=== PATIENT | male | born 1960 | race Asian ===

== ENCOUNTER 2018-05-03 15:02 | Outpatient (CLI) | payer OTHER ==
[~2018-05-03 15:02] MED LIST: ACET5TAB36 PO; CYCL10TA35 PO; GLIP5TAB65 PO; GLUCOPHAGE1000 MG PO; RANI150T78 PO; [UNRECOGNIZED DRUG - CODE] PO
[2018-05-03 15:46] LABS: PLATELET COUNT 195 K/uL (142-355)
[2018-05-03 16:11] LABS: POTASSIUM 3.9 mmol/L (3.6-5.2)
== END 2018-05-03 21:25 | disposition home or self-care (01) ==
LOC: RAD 15:02
PROVIDERS: Internal Medicine
DX: M19.90 Unspecified osteoarthritis, unspecified site (principal); E11.9 Type 2 diabetes mellitus without complications; Z12.5 Encounter for screening for malignant neoplasm of prostate; R97.20 Elevated prostate specific antigen [PSA]
CPT/HCPCS: 36415; 80053; 80061; 81000; 82043; 82570; 83036; 84153; 85027; 86039

== ENCOUNTER 2018-05-10 15:32 | Outpatient (CLI) | payer OTHER | END 2018-05-10 22:10 | disposition home or self-care (01) | LOC: LABW 15:32 | DX: R80.9 Proteinuria, unspecified (principal) | CPT/HCPCS: 36415; 84165; 84166 ==

== ENCOUNTER 2019-12-29 08:41 | Outpatient (CLI) | payer OTHER | END 2019-12-29 23:01 | disposition home or self-care (01) | LOC: US 08:41 | DX: R74.8 Abnormal levels of other serum enzymes (principal) ==

== ENCOUNTER 2020-10-22 16:01 | Outpatient (CLI) | payer OTHER | END 2020-10-22 21:31 | disposition home or self-care (01) | LOC: RAD 16:01 | PROVIDERS: ATTEND Internal Medicine | DX: M54.6 Pain in thoracic spine (principal); I10 Essential (primary) hypertension ==

== ENCOUNTER 2021-10-21 10:51 | Outpatient (CLI) | payer OTHER | END 2021-10-21 18:54 | disposition home or self-care (01) | LOC: US 10:51 | PROVIDERS: ATTEND Internal Medicine | DX: I63.542 Cerebral infarction due to unspecified occlusion or stenosis of left cerebellar artery (principal) ==

== ENCOUNTER 2021-10-29 08:35 | Outpatient (CLI) | payer OTHER ==
[2021-10-29 09:04] LABS: PLATELET COUNT 169 K/uL (142-355)
[2021-10-29 09:24] LABS: POTASSIUM 4.3 mmol/L (3.6-5.2)
== END 2021-10-29 19:16 | disposition home or self-care (01) ==
LOC: US 08:35
PROVIDERS: ATTEND Internal Medicine
DX: I63.81 Other cerebral infarction due to occlusion or stenosis of small artery (principal); R09.89 Other specified symptoms and signs involving the circulatory and respiratory systems
CPT/HCPCS: 36415; 80053; 80061; 81000; 85027

== ENCOUNTER 2021-12-25 08:28 | Outpatient (CLI) | payer OTHER ==
[2021-12-25 08:49] LABS: PLATELET COUNT 184 K/uL (142-355)
[2021-12-25 09:42] LABS: POTASSIUM 3.9 mmol/L (3.6-5.2)
== END 2021-12-25 19:52 | disposition home or self-care (01) ==
LOC: LABW 08:28 → CT 08:28
PROVIDERS: Psychiatry & Neurology Neurology; ATTEND Internal Medicine
DX: I69.30 Unspecified sequelae of cerebral infarction (principal); E11.22 Type 2 diabetes mellitus with diabetic chronic kidney disease; N18.9 Chronic kidney disease, unspecified; I12.9 Hypertensive chronic kidney disease with stage 1 through stage 4 chronic kidney disease, or unspecified chronic kidney disease
CPT/HCPCS: 36415; 80053; 81002; 82024; 82043; 82088; 82533; 82565; 82570; 83036; 83735; 83835; 84100; 84156; 84244; 84439; 84443; 85027; Q9963